=== PATIENT | male | born 1960 | race Caucasian/White ===

== ENCOUNTER 2018-12-25 08:18 | Emergency (ER) | payer OTHER ==
[~2018-12-25] VITALS: Ht 177.8 cm; Wt 68.0 kg
[2018-12-25 09:02] LABS: BASOPHILS ABSOLUTE AUTO 0.03 K/mm3 (0.00-0.23); BASOPHILS PERCENT AUTO 0 % (0-2); EOSINOPHILS PERCENT AUTO 1 % (0-6); Hematocrit 38.5 % (37.0-53.0); Hemoglobin 12.8 g/dL (13.5-17.5); IMMATURE GRAN ABSOLUTE AUTO 0.04 K/mm3 (0.00-0.10); IMMATURE GRAN PERCENT AUTO 0 % (0-1); LYMPHOCYTES ABSOLUTE AUTO 1.65 K/mm3 (0.84-5.20); LYMPHOCYTES PERCENT AUTO 14 % (21-46); MONOCYTES ABSOLUTE AUTO 0.82 K/mm3 (0.16-1.47); MONOCYTES PERCENT AUTO 7 % (4-13); Mean Corpuscular HGB 30.8 pg (26.0-34.0); Mean Corpuscular HGB Conc 33.2 g/dL (31.5-36.5); Mean Corpuscular Volume 93 fL (80-100); Mean Platelet Volume 9.3 fL (9.1-12.4); NEUTROPHILS ABSOLUTE AUTO 9.44 K/mm3 (1.96-9.15); NEUTROPHILS PERCENT AUTO 78 % (41-73); Platelet Count 347 K/mm3 (150-400); RDW Coefficient Variation 11.9 % (11.7-14.2); RDW Standard Deviation 40.7 fL (35.1-46.3); Red Blood Cell Count 4.15 M/mm3 (4.30-5.90); White Blood Cell Count 12.08 K/mm3 (4.00-11.30)
[2018-12-25 09:20] LABS: Alanine Aminotransfer (ALT/SGP 35 U/L (12-78); Albumin, Blood 3.3 g/dL (3.4-5.0); Albumin/Globulin Ratio 0.8 (0.8-1.8); Alk Phos 98 U/L (50-136); Anion Gap 7 mmol/L (6-16); Aspartate Aminotrans (AST/SGOT 33 U/L (12-37); Bilirubin, Total 0.2 mg/dL (0.1-1.0); Blood Urea Nitrogen 15 mg/dL (8-24); Bun/Creatinine Ratio 19.2 (12.0-20.0); CO2, Blood 30 mmol/L (21-32); Calcium, Blood 8.8 mg/dL (8.5-10.1); Chloride, Blood 105 mmol/L (98-108); Creatinine, Blood 0.78 mg/dL (0.60-1.20); Globulin, Blood 4.3 g/dL (2.2-4.0); Glomerular Filtration Rate >60 (60-); Glucose, Blood 104 mg/dL (70-99); Potassium, Blood 4.5 mmol/L (3.5-5.5); Sodium, Blood 142 mmol/L (136-145); Total Protein, Blood 7.6 g/dL (6.4-8.2)
[2018-12-25] MEDS ORDERED: Zithromax250 MG PO (09:41)
[2018-12-25] MEDS ORDERED: ALBU90OI INH (09:41)
[2018-12-25] MEDS ORDERED: PRED20 PO (09:41)
[2018-12-25] MEDS ORDERED: Cheratussin AC118 ML PO (09:41)
[2018-12-25] MEDS ORDERED: BENZ100A PO (09:41)
== END 2018-12-25 10:02 | disposition home or self-care (01) ==
LOC: ER 08:18
PROVIDERS: Physician Assistant
DX: J18.1 Lobar pneumonia, unspecified organism (principal); F17.210 Nicotine dependence, cigarettes, uncomplicated; Z79.899 Other long term (current) drug therapy
CPT/HCPCS: 71046; 80053; 85025; 94640; 96365; 99283-25; J0696; J7512